=== PATIENT | female | born 1985 ===

== ENCOUNTER 2020-04-05 14:32 | Outpatient (REF) | payer OTHER, SELFPAY ==
--- NOTE | 2020-04-05 14:47 | XR_ITS ---
EXAMINATION: XR ANKLE, LEFT CLINICAL INFORMATION: Fracture left lower leg. COMPARISON: 06/16/2019 left ankle. TECHNIQUE: AP, lateral, and mortise views of the left ankle. FINDINGS: There is a healed distal fibular fracture and previously stabilized with a lateral metallic plate and screws. There is a healing medial malleolar fracture with a solitary cancellous screw and tight rope repair noted. The ankle mortise and subtalar joints are normal. There is bimalleolar soft tissue swelling. XR/XR ankle LT min 3V IMPRESSION: Healed distal fibular fracture, stabilized with lateral plate and screws unchanged to previous study 06/16/2019. Solitary cancellous screw through a partially healing medial malleolar fracture.
== END 2020-04-05 14:33 | disposition home or self-care (01) ==
LOC: HO.HOSX 14:32
PROVIDERS: PCP Physician Assistant; Referring Provider Physician Assistant; Visit Provider Orthopaedic Surgery
DX: S82.892D Other fracture of left lower leg, subsequent encounter for closed fracture with routine healing (principal); F17.200 Nicotine dependence, unspecified, uncomplicated
CPT/HCPCS: 73610; 99212

== ENCOUNTER 2020-09-17 08:17 | Outpatient (REF) | payer OTHER, SELFPAY | END 2020-09-17 08:18 | disposition home or self-care (01) | LOC: HO.HOSX 08:17 | PROVIDERS: Visit Provider Orthopaedic Surgery | DX: Z13.89 Encounter for screening for other disorder (principal) ==

== ENCOUNTER → 2020-10-01 15:19 | Outpatient (BNVA) | payer OTHER, SELFPAY | PROVIDERS: Visit Provider Internal Medicine Cardiovascular Disease | DX: I11.9 Hypertensive heart disease without heart failure (principal); R06.81 Apnea, not elsewhere classified | CPT/HCPCS: 93005; 99202 ==

== ENCOUNTER 2020-10-11 08:05 | Outpatient (REF) | payer OTHER, SELFPAY ==
--- NOTE | ~2020-10-11 | XR_ITS ---
EXAMINATION: XR ANKLE, LEFT CLINICAL INFORMATION: Fracture COMPARISON: Previous x-rays, most recent March 2020 TECHNIQUE: AP, lateral, and mortise views of the left ankle. FINDINGS: Orthopedic hardware appears unchanged. There are healed distal fibular shaft and posterior malleolar fractures. Transverse medial malleolar fracture appears unchanged from most recent exam March 2020. Transverse lucency is still seen questionable for incomplete healing. The ankle mortise is normal. Soft tissues are normal. XR/XR ankle LT min 3V IMPRESSION: ORIF left ankle fracture. Orthopedic hardware appears unchanged. Persistent transverse lucency seen in the medial malleolus questionable for incomplete healing.
== END 2020-10-11 08:06 | disposition home or self-care (01) ==
LOC: HO.HOSX 08:05
PROVIDERS: Visit Provider Orthopaedic Surgery
DX: S82.892D Other fracture of left lower leg, subsequent encounter for closed fracture with routine healing (principal); F17.200 Nicotine dependence, unspecified, uncomplicated; X58.XXXD Exposure to other specified factors, subsequent encounter
CPT/HCPCS: 73610; 99212

== ENCOUNTER → 2021-01-29 14:55 | Outpatient (REF) | payer OTHER, SELFPAY ==
--- NOTE | 2021-01-29 14:57 | CA_ITS ---
Transthoracic Echocardiogram Patient (Last, First, Middle): Renetta Monae L Gender: Female Date of : 1985 Age: 35 Procedure Date: 01/29/2021 Procedure Type: Transthoracic Echocardiogram Location: OP Height: 167.64 cm Weight: 116.12 kg BSA: 2.22 m2 Heart Rate: bpm BP: 130 / 80 mmHg Stress Test Technician: Referring MD: Monroe Bolden MD Symptoms: I11.9 - Hypertensive heart disease without heart failure Study Quality: Good ECG Rhythm: Sinus Conclusions: - The left ventricular systolic function is normal. The visually estimated ejection fraction is between 65-70%. - There is mildly increased left ventricular wall thickness. - No obvious valvular pathology seen on this study. Findings Left Ventricle Normal left ventricular cavity size. There is mildly increased left ventricular wall thickness. The left ventricular systolic function is normal. The visually estimated ejection fraction is between 65-70%. There is no evidence of regional wall motion abnormalities. Diastolic function is normal for age. Right Ventricle Normal right ventricular cavity size and systolic function. Atria Both atria are normal in size. LA measurement seems to be overestimate. Aortic Valve The aortic valve was not well visualized. The aortic valve structure and function is likely normal. There is no aortic valve stenosis. There is no aortic valve regurgitation. Mitral Valve The mitral valve appears normal. There is trace mitral valve regurgitation. There is no mitral valve stenosis. Pulmonic Valve The pulmonic valve was not well visualized. Tricuspid Valve Normal tricuspid valve structure. There is trace tricuspid valve regurgitation. The pulmonary artery systolic pressure is normal. Great Vessels The aortic annulus, sinuses of valsalva, and asc aorta are normal in size. Venous The inferior vena cava was not well visualized. The inferior vena cava is normal in size. Pericardium/Pleural There is no evidence of pericardial effusion. Prior Study Comparison Changes noted compared to prior study dated: 04/21/2019. LV hypertrophy seems improved. Recommendations, Care & Conclusions No obvious valvular pathology seen on this study. Measurements 2D Linear Measurements IVSd: 1.27 0.6-0.9/0.6-1.0 cm LVIDd: 4.69 3.9-5.3/4.2-5.9 cm LVIDd Index: 2.11 2.4-3.2/2.2-3.1 cm/m2 LVIDs: 3.20 2.0-3.6 cm LVPWd: 1.25 0.7-1.1 cm Ao Root: 3.00 2.1-3.5 cm LA Diam: 4.00 2.7-3.8/3.0-4.0 cm LAIDs Index: 1.80 1.5-2.3 cm/m2 LV Mass: 282.51 67-162/88-224 g LV Mass Index: 127.26 43-95/49-115 g/m2 LVOT Diam: 2.10 3.0+(-)1.3 cm 2D Systolic Function EF 4C: 65.10 >55% EF 2C: 65.20 >55% EF BiP: 64.10 >55% Mitral Valve MV Pk E: 0.91 MV PK A: 0.71 MV Decel Time: 158.00 E/A: 1.30 E'Lateral: 11.70 E'Medial: 10.00 E/E' Med: 9.10 E/E' Lat: 7.80 PHT: 46.00 MVA PHT: 4.78 Decel [place]: 5.78 Aortic Valve AoV Pk Rigo: 1.68 AoV Mn Rigo: 1.08 AoV VTI: 0.37 AoV Pk Grad: 11.00 Aov Mn Grad: 5.00 IGGY Cont.VTI: 2.57 LVOT LVOT Pk Rigo: 1.20 LVOT Mn Rigo: 0.84 LVOT VTI: 0.27 LVOT Pk Grad: 6.00 LVOT Mn Grad: 3.00 LVOT Diam: 2.10 LVOT Area: 3.46 Diastolic Function MV Pk E: 0.91 MV Pk A: 0.71 E/A: 1.30 E'Medial: 10.00 E/E' Med: 9.10 E' Laterial: 11.70 E/E' Lat: 7.80 Right Ventricle TAPSE (mm): 25.00 TVS' Rigo: 12.00 Tricuspid Valve TR Pk Rigo: 2.11 TR Pk Grad: 18.00 RA Press: 3.00 RVSP: 21.00 Great Vessels Aorta Ao Root-2D: 3.00 2.0-3.7 cm Ao Asc: 3.10 2.1-3.4 cm Pulmonary Valve PV Pk Rigo: 1.26 Peak PV Grad: 6.00 Updated in Other Vendor System with Status of Final Barrie Bonilla MD electronically signed on 01/30/2021 12:09:21 PM with status of Final
== END ==
LOC: HO.CARD 14:55
PROVIDERS: Visit Provider Internal Medicine Cardiovascular Disease
DX: I11.9 Hypertensive heart disease without heart failure (principal); R06.81 Apnea, not elsewhere classified
CPT/HCPCS: 93306

== ENCOUNTER 2021-04-09 16:19 | Outpatient (REF) | payer OTHER, SELFPAY ==
--- NOTE | ~2021-04-09 | XR_ITS ---
EXAMINATION: XR FOOT, LEFT CLINICAL INFORMATION: Pain in left foot. COMPARISON: Left ankle October 11, 2020 TECHNIQUE: AP, lateral, and oblique views of the left foot. FINDINGS: Status post internal fixation prior bilateral malleolar fracture. No acute abnormality of the foot. No fracture or dislocation. Joint spaces are normal. There is no soft tissue abnormality. XR/XR foot LT min 3V IMPRESSION: Normal left foot.
[2021-04-09 17:20] LABS: Hematocrit 43.4 % (37.0-47.0); Hemoglobin 13.7 g/dl (12.0-16.0); Mean Corpuscular HGB Conc 31.6 g/dl (31.0-35.0); Mean Corpuscular Volume 91.8 fL (80.0-98.0); Mean Platelet Volume 10.1 fL (9.4-12.3); Platelet Count 316 X10*3/uL (160-400); Red Blood Count 4.73 X10*6/uL (4.20-5.50); Red Cell Distribution Width 15.7 % (11.0-16.0); White Blood Count 10.6 X10*3/uL (4.8-10.8)
[2021-04-09 17:49] LABS: Alanine Aminotransferase 115 U/L (0-31); Albumin Level 4.5 g/dL (3.5-5.0); Alkaline Phosphatase 127 U/L (39-117); Anion Gap 15 (12-20); Aspartate Amino Transferase 55 U/L (5-31); Bilirubin Total 0.5 mg/dL (0.0-1.0); Blood Urea Nitrogen 14 mg/dL (9-16); Calcium 9.6 mg/dL (8.4-10.2); Carbon Dioxide 23 mmol/L (22-29); Chloride 105 mmol/L (96-108); Cholesterol 241 mg/dL; Estimated Glomerular Filt Rate > 60; Glucose Fasting 280 mg/dL (60-99); HDL Cholesterol 39 mg/dL; LDL Cholesterol Calculated 132 mg/dl; Potassium 4.4 mmol/L (3.3-5.1); Sodium 139 mmol/L (135-145); Total Protein 7.4 g/dL (6.5-8.0); Triglycerides 351 mg/dL
[2021-04-09 18:08] LABS: TSH reflex Free T4 0.89 uIU/mL (0.32-4.0)
[2021-04-10 07:27] LABS: Estimated Average Glucose 206 mg/dL; Hemoglobin A1c % 8.8 %
== END 2021-04-09 16:20 | disposition home or self-care (01) ==
LOC: HO.XRAY 16:19
PROVIDERS: PCP Physician Assistant; Visit Provider Physician Assistant
DX: I10 Essential (primary) hypertension (principal); M79.672 Pain in left foot
CPT/HCPCS: 36415; 73630; 80053; 80061; 83036; 84443; 85027

== ENCOUNTER 2021-09-24 08:21 | Outpatient (REF) | payer OTHER, SELFPAY ==
[2021-09-24 08:57] LABS: Hematocrit 39.4 % (37.0-47.0); Hemoglobin 12.5 g/dl (12.0-16.0); Mean Corpuscular HGB Conc 31.7 g/dl (31.0-35.0); Mean Corpuscular Volume 91.4 fL (80.0-98.0); Mean Platelet Volume 9.3 fL (9.4-12.3); Platelet Count 316 X10*3/uL (160-400); Red Blood Count 4.31 X10*6/uL (4.20-5.50); Red Cell Distribution Width 16.7 % (11.0-16.0); White Blood Count 11.6 X10*3/uL (4.8-10.8)
[2021-09-24 09:02] LABS: Estimated Average Glucose 128 mg/dL; Hemoglobin A1c % 6.1 %
[2021-09-24 09:22] LABS: Alanine Aminotransferase 68 U/L (0-31); Albumin Level 4.3 g/dL (3.5-5.0); Alkaline Phosphatase 80 U/L (39-117); Anion Gap 17 (12-20); Aspartate Amino Transferase 28 U/L (5-31); Bilirubin Total 0.5 mg/dL (0.0-1.0); Blood Urea Nitrogen 16 mg/dL (9-16); Calcium 9.6 mg/dL (8.4-10.2); Carbon Dioxide 23 mmol/L (22-29); Chloride 102 mmol/L (96-108); Cholesterol 263 mg/dL; Estimated Glomerular Filt Rate > 60; Glucose Fasting 140 mg/dL (60-99); HDL Cholesterol 45 mg/dL; LDL Cholesterol Calculated 165 mg/dl; Potassium 4.4 mmol/L (3.3-5.1); Sodium 138 mmol/L (135-145); Total Protein 7.2 g/dL (6.5-8.0); Triglycerides 266 mg/dL
[2021-09-24 09:45] LABS: TSH reflex Free T4 0.49 uIU/mL (0.32-4.0)
== END 2021-09-24 08:22 | disposition home or self-care (01) ==
LOC: HO.LAB 08:21
PROVIDERS: PCP Physician Assistant; Visit Provider Physician Assistant
DX: E11.65 Type 2 diabetes mellitus with hyperglycemia (principal)
CPT/HCPCS: 36415; 80053; 80061; 83036; 84443; 85027

== ENCOUNTER 2022-05-07 15:45 | Outpatient (REF) | payer OTHER, SELFPAY ==
[2022-05-07 16:11] LABS: Hematocrit 38.3 % (37.0-47.0); Hemoglobin 11.7 g/dl (12.0-16.0); Mean Corpuscular HGB Conc 30.5 g/dl (31.0-35.0); Mean Corpuscular Hemoglobin 25.3 pg (27.0-33.0); Mean Corpuscular Volume 82.7 fL (80.0-98.0); Mean Platelet Volume 8.7 fL (9.4-12.3); Platelet Count 446 X10*3/uL (160-400); Red Blood Count 4.63 X10*6/uL (4.20-5.50); Red Cell Distribution Width 15.8 % (11.0-16.0); White Blood Count 14.4 X10*3/uL (4.8-10.8)
[2022-05-07 16:19] LABS: Estimated Average Glucose 148 mg/dL; Hemoglobin A1c % 6.8 %
[2022-05-07 17:06] LABS: Creatinine Urine 245.42 mg/dL; Microalbum/Creatinine Ratio Ur 45.6 ug/mg cr
[2022-05-07 17:25] LABS: Alanine Aminotransferase 57 U/L (0-31); Alkaline Phosphatase 105 U/L (39-117); Anion Gap 16 (12-20); Aspartate Amino Transferase 37 U/L (5-31); Bilirubin Total 0.4 mg/dL (0.0-1.0); Blood Urea Nitrogen 26 mg/dL (9-16); Calcium 10.1 mg/dL (8.4-10.2); Carbon Dioxide 22 mmol/L (22-29); Chloride 101 mmol/L (96-108); Cholesterol 271 mg/dL; Estimated Glomerular Filt Rate 50; Glucose Fasting 127 mg/dL (60-99); HDL Cholesterol 49 mg/dL; LDL Cholesterol Calculated 177 mg/dl; Sodium 134 mmol/L (135-145); TSH reflex Free T4 1.52 uIU/mL (0.32-4.0); Total Protein 8.3 g/dL (6.5-8.0); Triglycerides 228 mg/dL
== END 2022-05-07 15:46 | disposition home or self-care (01) ==
LOC: HO.LAB 15:45
PROVIDERS: PCP Physician Assistant; Visit Provider Physician Assistant
DX: I10 Essential (primary) hypertension (principal); E11.65 Type 2 diabetes mellitus with hyperglycemia
CPT/HCPCS: 36415; 80053; 80061; 82043; 83036; 84443; 85027

== ENCOUNTER 2024-01-02 17:27 | Emergency (ER) | payer OTHER, SELFPAY ==
--- NOTE | ~2024-01-02 | US_ITS ---
EXAMINATION: US VENOUS ULTRASOUND WITH DOPPLER LOWER EXTREMITY, LEFT CLINICAL INFORMATION: Pain COMPARISON: None available. TECHNIQUE: Ultrasound of the deep veins is performed from the hip to the calf with compression sonography and color and pulse Doppler assessment. Spectral analysis with color-flow imaging is performed. FINDINGS: There is normal venous compression and respiratory variation and augmented flow in the visualized deep veins. The visualized common femoral vein, superficial femoral vein, profunda femoral vein, popliteal vein, and the trifurcation region shows no evidence of deep venous thrombosis. The peroneal vein was not visualized limiting evaluation. Slow flow is noted in the common femoral and popliteal veins. There is no significant popliteal fossa cyst. The left proximal femoral artery appears completely occluded, which is better characterized on concurrently performed lower extremity arterial duplex. If the patient's symptoms persist, followup ultrasound in 5 days 7 days might be of value to exclude proximal propagation from a non-visualized calf vein. US/US venous duplex LE IMPRESSION: 1. No DVT demonstrated in the digital left lower extremity. The peroneal vein was not visualized limiting evaluation. 2. The left proximal femoral artery appears completely occluded, which is better characterized on concurrently performed lower extremity arterial duplex, reported separately.
--- NOTE | ~2024-01-02 | US_ITS ---
EXAMINATION: NONINVASIVE ASSESSMENT OF THE ARTERIES OF THE RIGHT LOWER EXTREMITY CLINICAL INFORMATION: Left lower extremity pain TECHNIQUE: Left lower extremity duplex ultrasound was performed with velocity measurements and waveform analysis in the common femoral arteries, profunda femoris arteries, proximal mid and distal superficial femoral arteries, popliteal arteries and tibial vessels. This study was performed only at rest. COMPARISON: None FINDINGS: Velocities in cm/sec and phasicity as well as the presence of plaque are reported below. There is acute occlusive thrombus noted in the left proximal and mid superficial femoral arteries and profunda artery, as well as the posterior tibial artery. The peroneal artery was not identified. COMPLIANCE DIRECTOR: 39.1, triphasic Distal SFA: 15.1, monophasic Popliteal: 15.8, monophasic US/US arterial duplex LE LT IMPRESSION: There is acute occlusive thrombus noted in the left proximal and mid superficial femoral arteries and profunda artery, as well as the posterior tibial artery. The peroneal artery was not identified. The findings and recommendations were discussed with Dr. Moura by telephone at 01/02/2024 7:06 PM and it was ascertained that the content and urgency of the report was understood at the time of direct communication.
[2024-01-02 17:31] VITALS: BP 194/113; PULSE 98; RESP 24; TEMP 36.8; O2SAT 98; BMI 42.0
--- NOTE | 2024-01-02 17:32 | ED_ITS ---
HPI - Extremity Injury (Lower) General Chief Complaint: Extremity Injury, Lower Stated Complaint: lft leg pain Time Seen by Provider: 01/02/24 17:40 Source: patient Mode of arrival: wheelchair Limitations: no limitations History of Present Illness ED Provider: Dr. Merry Moura HPI Narrative: Patient comes to the emergency room complaining of severe pain in the distal left lower extremity a started approximately 32 hours ago. Patient states that she has been having pain in the calf area down to the foot, mostly severe numbness and tingling. Over the last few hours it has been getting worse. Approximately 4 hours ago, the pain became unbearable. Patient denies any previous vascular events, no injuries to the area. Related Data Previous Rx's ?Medication ?Instructions ?Recorded blood pressure kit-extra large #1 ea 04/10/21 blood sugar diagnostic (FreeStyle #100 ea 07/30/21 Lite Strips) blood-glucose meter (FreeStyle #1 ea 07/30/21 Lite Meter kit) lancets 28 gauge (FreeStyle #100 ea 07/30/21 Lancets) nicotine 14 mg/24 hr daily 1 patch transdermal DAILY 14 days 09/25/21 transdermal patch #14 ea nicotine 21 mg/24 hr daily 1 patch transdermal DAILY 28 days 09/25/21 transdermal patch #28 ea nystatin 100,000 unit/gram topical 1 appl topical DAILY 15 days #30 09/25/21 cream grams terbinafine HCl 1 % topical cream 1 appl topical BID 15 days #30 09/25/21 (Athlete's Foot (terbinafine)) grams metformin 500 mg tablet 500 mg PO BID 30 days #60 tabs 01/17/22 sertraline 50 mg tablet (Zoloft) 50 mg PO DAILY 90 days #90 tabs 05/29/22 pravastatin 10 mg tablet 10 mg PO DAILY #30 tabs 10/23/22 amlodipine 10 mg tablet 10 mg PO DAILY #90 tabs 11/22/22 lisinopril 40 mg tablet 40 mg PO DAILY #90 tabs 11/22/22 Allergies Allergy/AdvReac Type Severity Reaction Status Date / Time No Known Allergies Allergy Verified 01/02/24 17:34 [No Known Allergies*] Review of Systems Review of Systems: Constitutional : No Weight loss, No Fever, No Chills, No Night Sweats, No Fatigue, No Malaise ENT/Mouth : No Hearing loss, No Ear Pain, No Nasal Congestion, No Sinus Pain, No Hoarseness, No sore throat, No Rhinorrhea, No Swallowing Difficulty Eyes: No Eye Pain, No Swelling, No Redness, No Foreign Body, No Discharge, No Vision Changes Cardiovascular : No Chest Pain, No SOB, No Dyspnea on Exertion, No Orthopnea, No Edema, No Palpitations Respiratory : No Cough, No Sputum, No Wheezing, No Smoke Exposure, No Dyspnea Gastrointestinal : No Nausea, No Vomiting, No Diarrhea, No Constipation, No abdominal Pain, No Hematochezia, No Melena Genitourinary : no irregular bleeding, No Dysuria, No Urinary Frequency, No Hematuria, No Urinary Incontinence, No Urgency, No Flank Pain, No Urinary Flow Changes, No Hesitancy Musculoskeletal : Complaining of severe pain in the left lower extremity Skin : No Skin Lesions, No rash Neuro : No Weakness, No Numbness, No Paresthesias, No Loss of Consciousness, No Dizziness, No Headache Psych : No Anxiety/Panic, No Depression, No SI/HI/AH/VH, No Social Issues, Heme/Lymph: No Bruising, No Bleeding,No Lymphadenopathy Endocrine : No Polyuria, No Polydipsia, No Temperature Intolerance [facility] Past Medical History Medical History (Updated 01/02/24 @ 18:30 by Merry Moura MD) Smoker HTN (hypertension) DMII (diabetes mellitus, type 2) HLD (hyperlipidemia) Hypertensive heart disease Closed left ankle fracture Family History Family History Father No problems noted. Mother No problems noted. Social History Social History Housing: House Alcohol intake: current Alcohol intake frequency: a few times a month Alcohol type: hard liquor Patient Tobacco Use Status: Current everyday Tobacco user Cigarettes Per Day: 10 Substance Use Type: Marijuana Advance Directives: No Advance Directives Information Provided: No Current occupational status: unemployed Current occupation: right handed Cognitive needs: No Hearing needs: No Vision needs: No Physical Exam Vital Signs: Vital Signs: Last Vital Signs Temp 98.3 F 01/02/24 17:31 Pulse 98 01/02/24 17:31 Resp 24 H 01/02/24 17:31 BP 194/113 H 01/02/24 17:31 Pulse Ox 98 01/02/24 17:31 O2 Del Method Room Air 01/02/24 17:31 BMI result Body Mass Index 42.0 Const: Other: Appearance: Alert. Oriented X3. No acute distress. Eyes: Pupils equal, round and reactive to light. ENT: Pharynx normal. Neck: Normal inspection. Neck supple. No lymph nodes noted. No crepitus CVS: Normal heart rate and rhythm. Pulses normal. Normal S1 and S2 Respiratory: No respiratory distress. Breath sounds normal. No Wheezing. No rales Abdomen: Soft and nontender. No rigidity. No distention. Skin: Skin warm and dry. Normal skin color. Normal skin turgor. Extremities: The patient's left lower extremity is pale. No palpable pedal pulses , inaudible Doppler pulses in the left lower extremity, leg is pale, pain out of proportion to very slight palpation. Neuro: Oriented X 3. No motor deficit. No sensory deficit. Moving all extremities. No slurred speech. CN 2 through 12 grossly intact Psych: calm, cooperative, normal affect Course Course Course Narrative: This is a Rapid Medical Exam performed in triage by Devika Gaytan PA-C. Full HPI, ROS and PE to be performed by primary ED provider. 38 year-old F w/ PMHx DM, ETHEL, smoker, HTN, presenting to the ED c/o severe LLE pain since yesterday w/decreased sensation. PE: pale, cannot palpate or doopler pulse Plan: Labs, US Medical Decision Making Medical Decision Making MDM Narrative: -on physical exam on arrival, patient has left lower extremity is pale, no palpable or audible pulse in the dorsum of the foot, patient has pain out of proportion. -all of patient's labs and imaging pending. I instructed the nurse to start heparin right away. A femoral thrombus is suspected. -IV Dilaudid 1 mg and heparin push and drip has been started -we do not have vascular surgery on-call. Patient will need to be transferred. Discussed with the patient, patient agreeable. -our trim technician is at bedside, confirmed that she sees a thrombus in the proximal left femoral artery -I discussed the patient with Dr. Walsh from [facility] vascular surgery, patient will be transferred ED to ED -discussed with the patient the nurse that patient is to remain strictly NPO -18:27, glucose 460. Patient receiving IV fluids and regular insulin 10 units Differential Diagnosis Differential Diagnoses: The differential diagnosis associated with the presentation includes (Arterial thrombus, venous thrombus) Admission/Observation Consideration of admission/observation: Escalation of care including admission/observation considered Consult Healthcare Provider Management of the patient was discussed with: Tool Repair Technician Independent Interpretation I performed an independent interpretation of an: EKG (My interpretation of EKG: Normal sinus rhythm, heart rate 71, no ST segment depression or elevation, no T- wave inversion, QTC 412) and Ultrasound (Bedside ultrasound shows a blood clot in the femoral artery) Critical Care Time Critical Care Time Critical Care Time: Yes Total Critical Care Time: 30 Attestation: I have personally provided critical care time. Time includes review of lab data, radiology results, discussion with consultants, and monitoring for potential decompensation. Intervention performed as documented. Discharge Plan Discharge Clinical Impression: Femoral artery thrombosis, left, Acute hyperglycemia Patient Disposition: [facility] Transfer Details: ED to ED, vascular surgery consult, Dr. Walsh Prescriptions: No Action (DME) FreeStyle Lite Strips Strip See Rx Instructions .ROUTE .MEDSUPPLY Qty: 100 3RF Rx Instructions: As directed (DME) lancets [FreeStyle Lancets] 28 gauge misc See Rx Instructions .ROUTE .MEDSUPPLY Qty: 100 3RF Rx Instructions: As directed (DME) blood-glucose meter [FreeStyle Lite Meter] Kit See Rx Instructions .Route Qty: 1 0RF Rx Instructions: As directed metformin 500 mg tablet 500 mg PO BID 30 Days Qty: 60 5RF sertraline [Zoloft] 50 mg tablet 50 mg PO DAILY 90 Days Qty: 90 1RF pravastatin 10 mg tablet 10 mg PO DAILY Qty: 30 2RF lisinopril 40 mg tablet 40 mg PO DAILY Qty: 90 1RF amlodipine 10 mg tablet 10 mg PO DAILY Qty: 90 0RF (DME) blood pressure kit-extra large Kit See Rx Instructions .ROUTE .MEDSUPPLY Qty: 1 0RF Rx Instructions: As directed terbinafine HCl [Athlete's Foot (terbinafine)] 1 % cream 1 appl topical BID 15 Days Qty: 30 3RF nystatin 100,000 unit/gram cream 1 appl topical DAILY 15 Days Qty: 30 1RF nicotine 21 mg/24 hr patch 24 hour 1 patch transdermal DAILY 28 Days Qty: 28 0RF nicotine 14 mg/24 hr patch 24 hour 1 patch transdermal DAILY 14 Days Qty: 14 0RF Print Language: Spanish
[2024-01-02] MEDS: ondansetron HCL 4 MG/2 ML VIAL IVPUSH (18:01)
[2024-01-02] MEDS: HYDROmorphone HCl 1 MG/ML SYRINGE IVPUSH ×2 (18:02→19:02)
[2024-01-02 18:04] LABS: MANUAL DIFF FLAG NO
--- NOTE | 2024-01-02 18:04 | ECG_ITS ---
Test Reason : BLOOD CLOTH Blood Pressure : / mmHG Vent. Rate : 071 BPM Atrial Rate : 071 BPM P-R Int : 164 ms QRS Dur : 086 ms QT Int : 380 ms P-R-T Axes : 059 022 024 degrees QTc Int : 412 ms Artifact in tracing Normal sinus rhythm with sinus arrhythmia Possible Inferior infarct , age undetermined , can be normal variant Borderline ECG When compared with ECG of 20-APR-2019 09:56, QT has shortened Referred By: Merry Moura Electronically Signed By:NITO SANDS
[2024-01-02 18:06] LABS: Basophils Percent Auto 0.3 % (0-2); Eosinophils Absolute Auto 0.1 X10*3/uL (0.0-0.4); Eosinophils Percent Auto 1.1 % (0-4); Hemoglobin 11.6 g/dl (12.0-16.0); Imm Gran Abs Auto 0.16 X10*3/uL (0.00-0.03); Imm Gran Pct Auto 1.7 % (0.0-0.4); Lymphocytes Absolute Auto 1.5 X10*3/uL (1.2-4.9); Lymphocytes Percent Auto 15.6 % (20-40); Mean Corpuscular HGB Conc 29.7 g/dl (31.0-35.0); Mean Corpuscular Hemoglobin 21.6 pg (27.0-33.0); Mean Corpuscular Volume 72.5 fL (80.0-98.0); Mean Platelet Volume 9.1 fL (9.4-12.3); Monocytes Absolute Auto 0.6 X10*3/uL (0.1-1.2); Monocytes Percent Auto 5.7 % (2-11); Neutrophils Absolute Auto 7.3 x10*3/uL (2.0-8.3); Neutrophils Percent Auto 75.6 % (45-73); Platelet Count 341 X10*3/uL (160-400); Red Blood Count 5.38 X10*6/uL (4.20-5.50); Red Cell Distribution Width 19.9 % (11.0-16.0); White Blood Count 9.6 X10*3/uL (4.8-10.8)
[2024-01-02 18:10] VITALS: BMI 38.0
[2024-01-02] MEDS: Heparin Sodium,Porcine 5,000 UNIT/ML VIAL 5000 UNIT IVPUSH (18:23)
[2024-01-02 18:24] LABS: INTERNATIONAL NORM RATIO 0.8 (0.9-1.1); Prothrombin Time 9.3 SEC (11.1-13.3)
[2024-01-02 18:25] LABS: Alanine Aminotransferase 39 U/L (0-31); Albumin Level 4.5 g/dL (3.5-5.0); Alkaline Phosphatase 135 U/L (39-117); Anion Gap 22 (12-20); Aspartate Amino Transferase 36 U/L (5-31); Bilirubin Direct 0.1 mg/dL (0.0-0.5); Bilirubin Total 0.4 mg/dL (0.0-1.0); Blood Urea Nitrogen 17 mg/dL (9-16); Calcium 10.3 mg/dL (8.4-10.2); Carbon Dioxide 19 mmol/L (22-29); Chloride 100 mmol/L (96-108); Creatinine Clr Calc Pharmacy 89.8; Estimated Glomerular Filt Rate 58; Glucose Random 460 mg/dL (60-115); Sodium 136 mmol/L (135-145); Total Protein 8.4 g/dL (6.5-8.0)
[2024-01-02 18:26] LABS: Partial Thromboplastin Time 20.7 SEC (26.0-36.8)
[2024-01-02] MEDS: Heparin Sodium,Porcine/1/2NS 25,000 UNIT/250 ML IV.SOLN 14.97 UNIT IVCONT (18:27)
[2024-01-02] MEDS: 0.9 % Sodium Chloride 1,000 ML 999 ML IVCONT (18:30)
[2024-01-02] MEDS: Insulin Regular, Human 100 UNIT/ML 10 ML VIAL IVPUSH (18:33)
--- NOTE | 2024-01-02 18:35 | PC.NURSE ---
pt a&ox3, iv inserted, labs drawn, pt medicated for pain, ekg performed, pt left foot cold to touch/pale nail bed blue in color- cap refill greater than 3 seconds, rt foot cool to touch but cap refill is about 2 seconds with nailbeds with a blue tinge as well, pulses were not palpated to either foot, doppler performed by this nurse to left and right pedal, post tib, femoral areas no pulses found to either foot. bedside US performed. executive director of marketing applied, call coronado within reach, will continue to monitor
[2024-01-02 18:39] VITALS: BP 202/102; PULSE 90; RESP 16; TEMP 37.1; O2SAT 98
--- NOTE | 2024-01-02 19:16 | PC.NURSE ---
pt medicated per order, heparin drip started, ivf started, pt transferring to [facility] ed, report given to vel.
[2024-01-02 19:17] VITALS: BP 193/100; PULSE 94; RESP 22; TEMP 37; O2SAT 98
== END 2024-01-02 19:17 | disposition short-term general hospital (02) ==
PROVIDERS: Physician Assistant; Emergency Provider Emergency Medicine; PCP Physician Assistant
DX: I74.3 Embolism and thrombosis of arteries of the lower extremities (principal); M79.605 Pain in left leg; E11.9 Type 2 diabetes mellitus without complications; I10 Essential (primary) hypertension; E78.5 Hyperlipidemia, unspecified; F17.210 Nicotine dependence, cigarettes, uncomplicated; F12.90 Cannabis use, unspecified, uncomplicated; Z79.84 Long term (current) use of oral hypoglycemic drugs; Z79.02 Long term (current) use of antithrombotics/antiplatelets; Z79.899 Other long term (current) drug therapy
CPT/HCPCS: 36415; 80048; 80076; 83735; 85025; 85610; 85730; 93005; 93926; 93971; 96374; 96375; 96376; 99285; J1170; J1644; J2405

== ENCOUNTER → 2024-01-02 18:04 | Outpatient (BNV) | payer OTHER, SELFPAY | PROVIDERS: Emergency Provider Emergency Medicine; PCP Physician Assistant; Visit Provider Internal Medicine | DX: I49.9 Cardiac arrhythmia, unspecified (principal) | CPT/HCPCS: 93010 ==

== ENCOUNTER 2024-01-26 10:08 | Outpatient (AMB) | payer OTHER, SELFPAY ==
[2024-01-26 10:10] VITALS: BP 148/96; PULSE 103; O2SAT 99; BMI 39.7
--- NOTE | 2024-01-26 10:10 | A.OFFPC_ITS ---
Vital Signs 01/26/24 10:10 Height 5 ft 6 in Weight 246 lb 0.2 oz BMI 39.7 BP 148/96 H Blood Pressure Location Lt brachial Position Sitting Pulse 103 H Pulse Source Pulse Oximeter Pulse Oximetry (%) 99 Oxygen Delivery Method Room Air Intake Visit Reasons: [facility] 01/17 - see comm Intake Note: Patient is here to follow-up after a visit the emergency department at [facility] on 01/18/24 Veterinary Science Teacher Required: No Allergies No Known Allergies [No Known Allergies*] Allergy (Verified 01/26/24 10:13) Medication List - Last Reconciled 01/26/24 by Hazel Ny PA-C amlodipine 10 mg PO DAILY apixaban (Eliquis) 5 mg PO BID blood pressure kit-extra large As directed blood sugar diagnostic (FreeStyle Lite Strips) As directed blood-glucose meter (FreeStyle Lite Meter kit) As directed lancets (FreeStyle Lancets) As directed metformin 500 mg PO BID 30 days nicotine 1 patch transdermal DAILY 28 days nicotine 1 patch transdermal DAILY 14 days nystatin 1 appl topical DAILY 15 days pravastatin 10 mg PO DAILY sertraline (Zoloft) 50 mg PO DAILY 90 days terbinafine HCl 1% (Athlete's Foot (terbinafine)) 1 appl topical BID 15 days Tobacco use date assessed: 01/26/24 Dental Screening Dental Screen Date: 01/26/24 HPI [facility] 01/17 - see comm HPI Details 38-year-old female with past medical his tory of hypertension, diabetes mellitus, hyperlipidemia, generalized anxiety disorder, depression coming in for hospital follow up.?In review of the notes, patient was seen in [facility] ED 01/03/2024 for severe pain in the distal left lower extremity.?Lower extremity was found to be pale without palpable pulses started on IV heparin and Dilaudid.? Ultrasound showed thrombus in the proximal left femoral artery and transferred to [facility] for vascular surgery. While at [facility] she went emergently to OR for thrombectomy on 01/02/2024. Patient also had known right popliteal occlusion and went to the OR for popliteal thrombectomy 01/12/2024. Postoperative course was complicated by pain and she underwent CTA on 01/14/2024 with evidence of small hematoma within the left groin and reocclusion of the right popliteal artery. This was deemed chronic and no intervention was advised. Discharged home with services. Patient states since her discharge she has been having pain in bilateral legs and burning pain in the left foot. She has a follow up with vascular surgery this week and needs to establish care with hematology. She was also evaluated by VNA and PT in home and will be following with them in the coming weeks. Today she states the pain is improved from her initial discharge but is still having significant nerve and muscular pain. [facility] Medical History Smoker HTN (hypertension) DMII (diabetes mellitus, type 2) HLD (hyperlipidemia) Hypertensive heart disease Closed left ankle fracture Family History Father No problems noted. Mother No problems noted. Social History Housing: House Alcohol intake: current Alcohol intake frequency: a few times a month Alcohol type: hard liquor Patient Tobacco Use Status: Current everyday Tobacco user Cigarettes Per Day: 10 Substance Use Type: Marijuana Current occupational status: unemployed Current occupation: right handed Cognitive needs: No Hearing needs: No Vision needs: No Questionnaire Thrive Questionnaire Date Thrive assessed: 06/11/22 ETHEL-7 AMB Questionnaire ETHEL-7 Date ETHEL - 7 assessed: 09/25/21 Source: Developed by Drs. Hans Agudelo, Carol Carl, Sebastián Brownlee and colleagues, with an educational jeramie from [employer]. Review of Systems Const Denies chills, Denies fever(s) and Denies headache(s) Eyes Reports no additional complaints ENT Denies headache(s) Card Denies chest pain, Denies edema, Denies lightheadedness and Denies dyspnea Resp Denies dyspnea GI Denies abdominal pain Reports no additional complaints Musc Reports as per HPI and Denies abnormal gait Skin/Breast Reports system reviewed and no additional complaints, except as documented Neuro Denies abnormal gait and Denies headache(s) Psych Reports no additional complaints Physical exam (Primary Care) Vital Signs: Last Vital Signs Pulse 103 H 01/26/24 10:10 BP 148/96 H 01/26/24 10:10 Pulse Ox 99 01/26/24 10:10 Oxygen Delivery Method Room Air 01/26/24 10:10 BMI result Body Mass Index 39.7 Tobacco/Smoking Status: Tobacco use Status Tobacco use date assessed 01/26/24 01/26/24 10:19 Patient Tobacco Use Status Current everyday Tobacco 01/26/24 10:19 Thrive Assessment: Date of Thrive Assessment Date Thrive assessed 06/11/22 01/26/24 10:19 Const General: cooperative, healthy appearing, comfortable and no acute distress Orientation/consciousness: patient oriented x3 HENMT Head: Yes normocephalic Ears: hearing grossly normal bilaterally General nose exam: Normal external nose present Eyes General: appearance normal, both eyes and all related structures Conjunctivae: conjunctivae normal Neck Neck: Yes full ROM and Yes no lymphadenopathy Resp Effort & Inspection: normal respiratory effort Auscultation: clear to auscultation bilaterally, no crackles, no rales, no rhonchi and no wheezes Cardio Rate: regular rate Rhythm: regular rhythm Skin General skin exam: no rashes or lesions noted Neuro General: patient oriented x3 Gait exam (Neuro): Normal gait present Extrem Other: pain to light palpation of bilateral lower extremities with sensation and pulses intact. Lower limbs are soft without overlying skin changes. Incision on right thigh is clean dry and intact without signs of infection General: Yes normal to inspection, Yes full ROM and No edema Psych Affect: normal affect Attitude: cooperative Insight: Good insight present (Psych) Judgement: Good judgement present (Psych) Assessment and Plan Assessment & Plan (1) Hypercoagulable state: Code(s): D68.59 - Other primary thrombophilia Plan: Per [facility] note patient to follow up with hematology, referral placed today. (2) Critical limb ischemia of both lower extremities: Code(s): I70.223 - Atherosclerosis of nome arteries of extremities with rest pain, bilateral legs Plan: Patient is scheduled for vascular follow up through [facility] and will send office notes to us after her visit. She is still having significant pain to palpation and difficulty with mobility. She is on Gabapentin TID for nerve pain. She is due to start working with PT in home in the next coming weeks. Gabapentin dose increased to 400mg TID and short course of Oxycodone sent to the pharmacy to be used for breakthrough pain. Follow up in 3 weeks for re-evaluation and may consider referral to pain management. Plan This note was constructed using voice recognition software. While every effort has been made to ensure accuracy and copying machine repairer, still areas may have been included sometimes these areas may affect the content or meeting of the given symptoms. Total time spent caring for the patient today was 30 minutes. This includes time spent before the visit reviewing the chart, time spent during the visit, and time spent after the visit and documentation. Orders: Referrals Hematology & Oncology Referral D68.59 - Other primary thrombophilia, I70.223 - Atherosclerosis of nome arteries of extremities with rest pain, bilateral legs Medications: New lisinopril 10 mg PO DAILY 30 tabs 3RF gabapentin 400 mg PO TID 14 days 42 caps 0RF Coding Level of Care Code Est Pt Level 4 (16095) Diagnoses Hypercoagulable state D68.59 Critical limb ischemia of both lower extremities I70.223
== END 2024-01-26 11:01 | disposition home or self-care (01) ==
PROVIDERS: PCP Physician Assistant
DX: D68.59 Other primary thrombophilia (principal); I70.223 Atherosclerosis of native arteries of extremities with rest pain, bilateral legs
CPT/HCPCS: 99214

== ENCOUNTER → 2024-03-25 11:20 | Outpatient (BNV) | payer OTHER, SELFPAY | PROVIDERS: PCP Physician Assistant; Visit Provider Internal Medicine | DX: D68.69 Other thrombophilia (principal) | CPT/HCPCS: 99204; G2211 ==

== ENCOUNTER 2024-05-18 10:02 | Outpatient (AMB) | payer OTHER, SELFPAY ==
--- NOTE | 2024-05-18 10:31 | A.OFFPC_ITS ---
Vital Signs 05/18/24 10:32 Height 5 ft 6 in Weight 263 lb 2 oz BMI 42.5 BP 144/96 H Blood Pressure Location Lt brachial Position Sitting Pulse 88 Pulse Source Pulse Oximeter Pulse Oximetry (%) 97 Oxygen Delivery Method Room Air Intake Visit Reasons: Overdue for PE Museum Librarian Required: No Accompanied by: Friend Allergies No Known Allergies [No Known Allergies*] Allergy (Verified 05/18/24 10:35) Medication List - Last Reconciled 05/18/24 by Erwin Portillo PA-C alcohol swabs (Alcohol Prep Pads) 1 pad topical TID-QID 30 days amlodipine 10 mg PO DAILY apixaban (Eliquis) 5 mg PO BID blood pressure kit-extra large As directed blood sugar diagnostic (FreeStyle Lite Strips) As directed blood-glucose meter (FreeStyle Lite Meter kit) As directed gabapentin 400 mg PO TID 30 days insulin glargine (Lantus Solostar U-100 Insulin) 70 units (0.7 mL) subcut DAILY 30 days insulin lispro 1 sliding scale dose subcut USEASDIRECTD insulin lispro 33 units (0.33 mL) subcut TID 30 days lancets (FreeStyle Lancets) Use as directed - TID lisinopril 10 mg PO DAILY metformin 500 mg PO BID 30 days nicotine 1 patch transdermal DAILY 28 days nicotine 1 patch transdermal DAILY 14 days nystatin 1 appl topical DAILY 15 days pen needle, diabetic (BD Ultra-Fine Mini Pen Needle) Injecting 3 times a day pravastatin 10 mg PO DAILY sertraline (Zoloft) 50 mg PO DAILY 90 days terbinafine HCl 1% (Athlete's Foot (terbinafine)) 1 appl topical BID 15 days Tobacco use date assessed: 01/26/24 Dental Screening Dental Screen Date: 01/26/24 HPI Overdue for PE HPI Details Patient is a 38-year-old female here today for routine annual physical. Patient has a past medical history significant for type 2 diabetes, hyperlipidemia, tobacco dependency, hypertension and history of critical limb ischemia requiring thromboembolectomy. Type 2 diabetes: Patient has been more compliant with her medication and A1c has improved significantly. She continues to be compliant with her insulin therapies. PLAN; will try Ozempic to help with added benefit of weight loss and discontinue metformin if Ozempic is covered. . Lower extremity blood clot: Has followed up with Hematology and will be getting hypercoagulable workup. For now continuing on Eliquis and aspirin. She has stopped smoking. She reports she has significant disability due to the blood clots in her legs. She continues to have some numbness and significant sensitivity in her foot and toes and often gets cramping. She has followed up with her vascular surgeon reports she had gotten repeat ultrasounds which did show left 100% blockage and right leg 60% blockage. PLAN: Will increase her gabapentin dose to 100 t.i.d. for better control of what seems to be neuropathy. .. Hypertension: Blood pressure today in office elevated. Will increase her lisinopril to maximal 40 mg dose which she was on in the past. Vaccines: Up-to-date with tetanus vaccine, considering flu and COVID vaccines. Considering pneumonia vaccine Logistics Center Manager : Needs up-to-date Pap screening [facility] Medical History (Updated 05/18/24 @ 10:50 by Erwin Portillo PA-C) Peripheral vascular disease HLD (hyperlipidemia) DMII (diabetes mellitus, type 2) Smoker Hypertensive heart disease Closed left ankle fracture HTN (hypertension) Surgical History History of thrombectomy Family History Father No problems noted. Mother No problems noted. Social History Household Members: Family and Children Housing: House Alcohol intake: current Alcohol intake frequency: a few times a month Alcohol type: hard liquor Patient Tobacco Use Status: Current everyday Tobacco user Tobacco use type: Cigarette e-Cigarette/Vaping Use: Never Used Substance Use Type: Marijuana service: No Current occupational status: unemployed Current occupation: right handed Gender identity: Female Cognitive needs: No Hearing needs: No Vision needs: No Questionnaire PHQ-9 Over the last 2 weeks, how often have you been bothered by any of the following problems? 1. Little interest or pleasure in doing things: not at all 2. Feeling down, depressed, or hopeless: not at all 3. Trouble falling or staying asleep, or sleeping too much: not at all 4. Feeling tired or having little energy: not at all 5. Poor appetite or overeating: not at all 6. Feeling bad about yourself - or that you are a failure or have let yourself or your family down: not at all 7. Trouble concentrating on things, such as reading the newspaper or watching television: not at all 8. Moving or speaking so slowly that other people could have noticed. Or the opposite - being so fidgety or restless that you have been moving around a lot more than usual: not at all 9. Thoughts that you would be better off or of hurting yourself in some way: not at all Total score: 0 Depression Screening Interpretation: Negative Depression Screening Done: Yes 42008 - PHQ-9 Billing: Yes Source: Developed by Drs. Hans Agudelo, Carol Carl, Sebastián Brownlee and colleagues, with an educational jeramie from [employer] Thrive Questionnaire Date Thrive assessed: 05/18/24 I am a: Patient What is your living situation today?: I choose not to answer this question Within the past 12 months, did the food you bought not last and you didn't have the money to get more?: I choose not to answer this question Within the past 12 months, did you worry whether your food would run out before you got money to buy more?: I choose not to answer this question Do you have trouble paying for medicines?: No Do you have trouble getting transportation to medical appointments?: Yes Do you have trouble paying your heating and electricity bill?: I choose not to answer this question Do you have trouble taking care of your child, family member or friend?: No Do you have trouble with day-to-day activities such as bathing, preparing meals, shopping, managing finances, etc.?: Yes Are you currently unemployed and looking for a job?: I choose not to answer this question Are you interested in more education?: No Please select the resources that you would like help with: Transportation THRIVE Score: 1 AUDIT C Alcohol Use Questionnaire (AUDIT-C) 1. How often do you have a drink containing alcohol?: Monthly or less 2. How many drinks containing alcohol do you have on a typical day when you are drinking?: 1 or 2 3. How often do you have six or more drinks on one occasion?: Never Total Score: 1 ETHEL-7 AMB Questionnaire ETHEL-7 Date ETHEL - 7 assessed: 05/18/24 Feeling nervous, anxious, or on edge: 0 = Not at all Not being able to stop or control worryin = Not at all Worrying too much about different things: 0 = Not at all Trouble relaxin = Not at all Being so restless that it is hard to sit still: 0 = Not at all Becoming easily annoyed or irritable: 0 = Not at all Feeling afraid as if something awful might happen: 0 = Not at all Total ETHEL-7 score (0-4 normal; 5-9 mild; 10-14 moderate; 15-21 severe): 0 Source: Developed by Drs. Hans Agudelo, Carol Carl, Sebastián Brownlee and colleagues, with an educational jeramie from [employer]. ETHEL-7 Assessment Billing ETHEL-7 Assessment Tool: ETHEL-7 Assessment 16240 Physical exam (Primary Care) Vital Signs: Last Vital Signs Pulse 88 05/18/24 10:32 BP 144/96 H 05/18/24 10:32 Pulse Ox 97 05/18/24 10:32 Oxygen Delivery Method Room Air 05/18/24 10:32 BMI result Body Mass Index 42.5 Tobacco/Smoking Status: Tobacco use Status Tobacco use date assessed 01/26/24 05/18/24 10:33 Patient Tobacco Use Status Current everyday Tobacco 05/18/24 10:33 Tobacco use type Cigarette 05/18/24 10:33 e-Cigarette/Vaping Use Never Used 05/18/24 10:33 Depression Screening Interpretation: Negative Thrive Assessment: Date of Thrive Assessment Date Thrive assessed 03/29/24 05/18/24 10:33 Office Procedures Flu Questionnaire Does the patient have a severe egg allergy?: No Results AMB Hemoglobin A1c AMB Hemoglobin A1c 6.5 % Last Edit by BERNADETTE Stapleton on 05/18/24 10:36 Immunizations Fluarix Triv [id number] (PF) 45 mcg (15 mcg x 3)/0.5 mL IM syringe Performing Provider: Erwin Portillo PA-C [facility] Documented (not given) by: BERNADETTE Stapleton on 05/18/24 10:33 Reason Not Given: Patient Refused Coding Diagnoses Annual physical exam Z00.00 Critical limb ischemia of both lower extremities I70.223 Type 2 diabetes mellitus with hyperglycemia, without long-term current use of insulin E11.65 Diabetes mellitus terminal operations supervisor insulin use: without snf use Diabetes mellitus complication status: with hyperglycemia Bilateral leg paresthesia R20.2 MDD (major depressive disorder), recurrent episode, moderate F33.1 Additional Codes ETHEL-7 Assessment Billing - ETHEL-7 Assessment Tool: ETHEL-7 Assessment 61825 ([id number]) PHQ-9 - 97404 - PHQ-9 Billing: Yes ([id number]) Assessment & Plan Assessment & Plan (1) Annual physical exam: Code(s): Z00.00 - Encounter for general adult medical examination without abnormal findings Category: Medical (2) Critical limb ischemia of both lower extremities: Code(s): I70.223 - Atherosclerosis of [place] arteries of extremities with rest pain, bilateral legs Category: Medical (3) DMII (diabetes mellitus, type 2): Code(s): E11.9 - Type 2 diabetes mellitus without complications Category: Medical Qualifiers: Diabetes mellitus terminal operations supervisor insulin use: without terminal operations supervisor use Diabetes mellitus complication status: with hyperglycemia Qualified Code(s): E11.65 - Type 2 diabetes mellitus with hyperglycemia (4) Bilateral leg paresthesia: Code(s): R20.2 - Paresthesia of skin Category: Medical (5) MDD (major depressive disorder), recurrent episode, moderate: Code(s): F33.1 - Major depressive disorder, recurrent, moderate Category: Medical Orders: Orders NE electromyogram (EMG) Today R20.2 - Paresthesia of skin Complete Blood Count no Diff Today E11.65 - Type 2 diabetes mellitus with hyperglycemia Influenza [id number] Immunization Today Z23 - Encounter for immunization AMB Hemoglobin A1c Today E11.65 - Type 2 diabetes mellitus with hyperglycemia Lipid Panel Today E78.2 - Mixed hyperlipidemia Microalbumin, Random (w Creat) Today E11.65 - Type 2 diabetes mellitus with hyperglycemia Comprehensive [place]. Panel Fast Today E11.65 - Type 2 diabetes mellitus with hyperglycemia Referrals Podiatry Referral E11.65 - Type 2 diabetes mellitus with hyperglycemia Medications: New lisinopril 40 mg PO DAILY 90 days 90 tabs 1RF I10 - Essential (primary) hypertension gabapentin 800 mg PO TID 30 days 90 tabs 3RF I10 - Essential (primary) hypertension, R20.2 - Paresthesia of skin semaglutide (Ozempic) for 4 weeks; then increase to 0.5 mg every week 0.25 mg (0.368 mL) subcut QWEEK 4 weeks 3 mL 0RF E11.65 - Type 2 diabetes mellitus with hyperglycemia Refilled sertraline (Zoloft) 50 mg PO DAILY 90 days 90 tabs 1RF F41.1 - Generalized anxiety disorder Discontinued lisinopril Discontinued Reason: Doctor's Order 10 mg PO DAILY 30 tabs 3RF gabapentin Discontinued Reason: Doctor's Order 400 mg PO TID 30 days 90 caps 1RF E11.65 - Type 2 diabetes mellitus with hyperglycemia, M79.606 - Pain in leg, unspecified
[2024-05-18 10:32] VITALS: BP 144/96; PULSE 88; O2SAT 97; BMI 42.5
== END 2024-05-18 11:16 | disposition home or self-care (01) ==
PROVIDERS: PCP Physician Assistant; Visit Provider Physician Assistant
DX: Z23 Encounter for immunization (principal); E11.65 Type 2 diabetes mellitus with hyperglycemia

== ENCOUNTER → 2024-05-18 10:02 | Outpatient (BNVA) | payer OTHER, SELFPAY | PROVIDERS: PCP Physician Assistant; Visit Provider Physician Assistant | DX: Z00.00 Encounter for general adult medical examination without abnormal findings (principal); I70.223 Atherosclerosis of native arteries of extremities with rest pain, bilateral legs; E11.65 Type 2 diabetes mellitus with hyperglycemia; R20.2 Paresthesia of skin; F33.1 Major depressive disorder, recurrent, moderate | CPT/HCPCS: 83036; 90471; 96127; 99395 ==

== ENCOUNTER 2025-04-19 10:08 | Outpatient (AMB) | payer OTHER, SELFPAY ==
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
[2025-04-19 10:12] VITALS: BP 148/100; PULSE 106; TEMP 36.4; O2SAT 96; BMI 42.3
== END 2025-04-19 11:13 | disposition home or self-care (01) ==
LOC: HO.HMCH 10:09
PROVIDERS: PCP Physician Assistant; Visit Provider Physician Assistant
DX: T14.8XXA Other injury of unspecified body region, initial encounter (principal); F33.1 Major depressive disorder, recurrent, moderate; F41.1 Generalized anxiety disorder; E78.2 Mixed hyperlipidemia; I10 Essential (primary) hypertension; E11.65 Type 2 diabetes mellitus with hyperglycemia; K62.5 Hemorrhage of anus and rectum; H43.393 Other vitreous opacities, bilateral; I74.3 Embolism and thrombosis of arteries of the lower extremities; E66.01 Morbid (severe) obesity due to excess calories; Z13.9 Encounter for screening, unspecified

== ENCOUNTER → 2025-04-19 10:08 | Outpatient (BNVA) | payer OTHER, SELFPAY | PROVIDERS: PCP Physician Assistant; Visit Provider Physician Assistant | DX: Z00.00 Encounter for general adult medical examination without abnormal findings (principal); E78.5 Hyperlipidemia, unspecified; I10 Essential (primary) hypertension; F41.1 Generalized anxiety disorder; F33.1 Major depressive disorder, recurrent, moderate; E78.2 Mixed hyperlipidemia; E11.65 Type 2 diabetes mellitus with hyperglycemia; K62.5 Hemorrhage of anus and rectum; H43.393 Other vitreous opacities, bilateral; I74.3 Embolism and thrombosis of arteries of the lower extremities; E66.01 Morbid (severe) obesity due to excess calories; Z79.01 Long term (current) use of anticoagulants; Z68.41 Body mass index [BMI] 40.0-44.9, adult | CPT/HCPCS: 83036; 96127; 99212 ==